=== PATIENT | female | born 1940 | race African-American/Black ===

== ENCOUNTER 2020-04-02 12:43 | Emergency (ER) | payer MEDICARE ==
[~2020-04-02] VITALS: Ht 175.3 cm; Wt 59.9 kg
--- OUTSIDE RECORDS SUMMARY | 2020-04-02 12:46 | XMS REPORT ---
Author Author [facility] t Organization [facility] Address 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 Allergies, Adverse Reactions, Alerts Allergy Name Allergy Type Status Severity Reaction(s) Onset Date Inacti ve Date Treating Clinician Comments Source Penicillins DA Active SD 2018-07-18 00:00:00 [facility] Medications This patient has no known medications. Procedures This patient has no known procedures. Results Test Description Test Time Test Comments Results Result Comments Source - CT CHEST W/O CONTRAST 2019-04-10 14:12:00 Pat ient Name: ELI GARCIA Unit No: [id number] EXAMS: CPT CODE: [id number] CT CHEST W/O CONTRAST [address]607 High-resolution CT of the chest CLINICAL INDICATION: Interstitial lung disease COMPARISON: None Location B2 Spiral CT is obtained from lung apices to bases without contrast and with axial, coronal and sagittal reconstructions as well as thin section axial series and prone and supine positioning as per high-resolution technique. One or more the following dose reduction techniques were used: Automated exposure control, adjustment of mA and/or kV according to patient size, and use of iterative reconstruction technique. DLP 677.78 mGy-cm. There is elevation of the right hemidiaphragm and elongated nodular opacity at the right lung base which measures 2.9 cm in width, 12 mm in AP diameter and 14 mm in craniocaudal dimension. This could represent an discoid atelectasis or mass. It extends cephalad to towards the right hilum. Lungs are otherwise clear, free of infiltrates, nodules or effusions. There is no evidence of septal thickening, emphysema, bronchiectasis or bullous disease. Heart is normal in size. Great vessels are normal in caliber. There is no convincing mediastinal or hilar adenopathy. Bony structures are unremarkable. Multiple calcified gallstones are present in the gallbladder. IMPRESSION: 1. Elongated nodule at the right lung base may represent discoid atelectasis. Short-term follow-up or consideration for PET CT may be appropriate. 2. Elevation of the right hemidiaphragm which may be due to splinting or diaphragmatic paralysis. 3. No evidence of interstitial lung disease 4. Cholelithiasis at 1412 Reported and signed by: Radha Hung M.D. [facility] NAME: ELI GARCIA [id number] PHYS: Merna Mejía [place] [address] : 1940 AGE: 78 SEX: F LOC: Z.PFL PHONE #: [phone] EXAM DATE: 04/10/2019 STATUS: REG CLI FAX #: [phone] RAD #: D/C DT PAGE 1 Signed Report (CONTINUED) Patient Name: ELI GARCIA Unit No: [id number] EXAMS: CPT CODE: [id number] CT CHEST W/O CONTRAST 00691 <Continued> CC: Merna Perla MD; Antoine Jimenes MD Technologist: Froilan Rendon RT(R); Polly CTDI: DLP: Trnscrpt: 04/10/2019 (4246) tCHIP [facility] NAME: ELI GARCIA [id number] PHYS: Merna Mejía [place] [address] : 1940 AGE: 78 SEX: F LOC: Z.PFL PHONE #: [phone] EXAM DATE: 04/10/2019 STATUS: REG CLI FAX #: [phone] RAD #: D/C DT PAGE 2 Signed Report Patient Name: ELI GARCIA Unit No: [id number] EXAMS: CPT CODE: [id number] CT CHEST W/O CONTRAST 42624 <Continued> Orig Print D/T: S: 04/10/2019 (1416) [facility] NAME: ELI GARCIA [id number] PHYS: Merna Mejía [place] [address] : 1939 AGE: 78 SEX: F LOC: Z.PFL PHONE #: [phone] EXAM DATE: 04/10/2019 STATUS: REG CLI FAX #: [phone] RAD #: D/C DT PAGE 3 Signed Report
[2020-04-02] MEDS ORDERED: ACETAMINOPHEN 325 MG TAB PO ONE (13:30)
[2020-04-02] MEDS ORDERED: LIDOCAINE 4% PATCH TP ONE (13:30)
[2020-04-02] MEDS ORDERED: TRAMADOL HCL 50 MG TAB PO ONE (13:30)
--- NOTE | 2020-04-02 14:42 | Diagnostic Imaging Report ---
EXAMINATION: RIBS UNILAT W/CXR INDICATION: Left rib pain COMPARISON: None FINDINGS: LINES/TUBES:None LUNGS:The lungs are well-inflated. No focal consolidation or pulmonary edema. PLEURA:No pleural effusion or pneumothorax. MEDIASTINUM:The cardiomediastinal silhouette appears normal in size and shape. BONES/SOFT TISSUES:Mildly displaced acute left lateral 11th rib fracture. ABDOMEN:No free air under the diaphragm. IMPRESSION: Mildly displaced left lateral 11th rib fracture. No pneumothorax. Signed by: Wendy Costa MD on 04/02/2020 2:38 PM
--- NOTE | 2020-04-02 15:56 | Emergency Department Note ---
History of Present Illnes History of Present Illness Chief Complaint: General Medicine Complaints History of Present Illness This is a 79 year old female had mechanical trip and fall going to the bathroom around 0245 this morning pt tripped and fell into the tub denies hitting her head pt a&o x 3 denies being on blood thinners c/o constant non radiating left ribs/flank pain and states it is sometimes hard to breathe no deformities noted denies dizziness denies weakness . 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 Any updates have been documented here. Past Medical History Recent Fever: No Clinical Suspicion of Infectio: No New/Unexplained Change in Ment: No Past Medical History: COPD Other Medical History: rheumatoid arthritis Past Surgical History: Knee Replacement Social History Smoking Cessation: Never Smoker Counseling Performed: No Alcohol Use: None Any Illegal Drug Use: No TB Exposure/Symptoms: No Physically hurt or threatened: No Other Last Tetanus: utd Any Pre-Existing Lines (PICC,: No Is patient up to date on immun: Yes Last Flu: utd Last Pneumovax: utd Review of Systems Review of Systems Constitutional: no symptoms EENTM: no symptoms Cardiovascular: no symptoms Respiratory: no symptoms Gastrointestinal: no symptoms Genitourinary: no symptoms Musculoskeletal: other (rib pain) Neurological: no symptoms Psychological: no symptoms Endocrine: no symptoms Hematological/Lymphatic: no symptoms Review of other systems All other systems reviewed and negative. Physical Exam Related Data Allergies: Coded Allergies: Penicillins (Verified Allergy, Unknown, 04/02/20) Triage Vital Signs Vital Signs Date Time Temp Pulse Resp B/P (MAP) Pulse Ox O2 Delivery O2 Flow Rate FiO2 04/02/20 12:45 98.9 99 20 131/72 97 Physical Exam CONSTITUTIONAL Constitutional: well-developed, well-nourished HENT HENT: normocephalic, atraumatic, oropharynx clear/moist, nose normal HENT L/R: left ext ear normal, right ext ear normal EYES Eyes: PERRL, conjunctivae normal NECK Neck: ROM normal PULMONARY Pulmonary: effort normal, breath sounds normal CARDIOVASCULAR Cardiovascular: regular rhythm, heart sounds normal, capillary refill normal, normal rate GASTROINTESTINAL Abdominal: soft, nontender, bowel sounds normal GENITOURINARY Genitourinary: exam deferred SKIN Skin: warm, dry MUSCULOSKELETAL Musculoskeletal: other (left lateral lower rib pain) NEUROLOGICAL Neurological: alert, oriented x 3, no gross motor or sensory deficits PSYCHOLOGICAL Psychological: mood/affect normal, judgement normal Results Imaging Imaging results reviewed: Yes Impressions EXAMINATION: RIBS UNILAT W/CXR INDICATION: Left rib pain COMPARISON: None FINDINGS: LINES/TUBES:None LUNGS:The lungs are well-inflated. No focal consolidation or pulmonary edema. PLEURA:No pleural effusion or pneumothorax. MEDIASTINUM:The cardiomediastinal silhouette appears normal in size and shape. BONES/SOFT TISSUES:Mildly displaced acute left lateral 11th rib fracture. ABDOMEN:No free air under the diaphragm. IMPRESSION: Mildly displaced left lateral 11th rib fracture. No pneumothorax. Signed by: Wendy Costa MD on 04/02/2020 2:38 PM Diagnostics Tests Diagnostic test(s) reviewed: Yes Critical Care Time Subsequent provider I assumed direction of critical care for this patient from another provider of my specialty. Assessment & Plan Assessment & Plan Final Impression: (1) Rib fracture Assessment & Plan dc home, f/u pcp tomorrow, Lidoderm patches, Tramadol, Tylenol otc Last Vital Signs Date Time Temp Pulse Resp B/P (MAP) Pulse Ox O2 Delivery O2 Flow Rate FiO2 04/02/20 12:45 98.9 99 20 131/72 97 Medications in the ED Lidocaine 1 ea NOW ONCE TP ; Start 04/02/20 at 13:30; Stop 04/02/20 at 14:08; Status DC Tramadol HCl 50 mg ONCE ONCE PO ; Start 04/02/20 at 13:30; Stop 04/02/20 at 14:08; Status DC Acetaminophen 650 mg ONCE ONCE PO ; Start 04/02/20 at 13:30; Stop 04/02/20 at 14:08; Status DC LELE BOOTH MD April 02, 2020 15:56
== END 2020-04-02 16:37 | disposition home or self-care (01) ==
LOC: ER 12:43
DX: S22.32XA Fracture of one rib, left side, initial encounter for closed fracture (principal); W01.0XXA Fall on same level from slipping, tripping and stumbling without subsequent striking against object, initial encounter; Y93.01 Activity, walking, marching and hiking; Y92.002 Bathroom of unspecified non-institutional (private) residence as the place of occurrence of the external cause; J44.9 Chronic obstructive pulmonary disease, unspecified; M06.9 Rheumatoid arthritis, unspecified
CPT/HCPCS: 71101; 99283

== ENCOUNTER 2022-05-05 21:30 | Inpatient (IN) | payer MEDICARE ==
[~2022-05-05] VITALS: Ht 175.3 cm; Wt 81.2 kg
[2022-05-05] MEDS ORDERED: ACETAMINOPHEN 1000 MG/100 ML IV STA (21:55)
[2022-05-05] MEDS ORDERED: DEXAMETHASONE SOD PHOS 10 MG/1 ML VIAL IV ONE (21:56)
[2022-05-05 22:03] LABS: BASOPHILS % 0.1 % (0.0-1.0); HEMATOCRIT 37.5 % (34.2-44.1); HEMOGLOBIN 12.2 g/dL (12.0-16.0); LYMPHOCYTES # (AUTO) 0.4 (1.0-3.2); LYMPHOCYTES % 3.9 % (18.0-39.1); MEAN CORPUSCULAR HEMOGLOBIN 32.4 pg (28-32); MEAN CORPUSCULAR HGB CONC 32.5 g/dL (31-35); MEAN CORPUSCULAR VOLUME 99.7 fL (81-99); MONOCYTES # (AUTO) 0.1 (0.2-0.8); NEUTROPHILS # (AUTO) 9.5 (2.1-6.9); NEUTROPHILS % 94.7 % (38.7-80.0); PLATELET COUNT 162 x10e3/uL (140-360); RED BLOOD COUNT 3.76 x10e6/uL (3.6-5.1); RED CELL DISTRIBUTION WIDTH 15.3 % (11.7-14.4)
[2022-05-05 22:18] LABS: ALANINE AMINOTRANSFERASE 196 IU/L (0-55); ALBUMIN 3.4 g/dL (3.5-5.0); ALBUMIN/GLOBULIN RATIO 0.9 (0.8-2.0); ALKALINE PHOSPHATASE 146 IU/L (40-150); ANION GAP 17.7 mmol/L (8-16); BLOOD UREA NITROGEN 16 mg/dL (7-26); BUN/CREATININE RATIO 20 (6-25); CALCIUM 8.9 mg/dL (8.4-10.2); CARBON DIOXIDE 20 mmol/L (22-29); CHLORIDE 106 mmol/L (98-107); CREATINE KINASE 84 IU/L (29-168); CREATININE, SERUM 0.82 mg/dL (0.57-1.11); GLUCOSE 173 mg/dL (74-118); POTASSIUM 3.7 mmol/L (3.5-5.1); SODIUM 140 mmol/L (136-145)
[2022-05-05 22:23] LABS: B-TYPE NATRIURETIC PEPTIDE2 19.9 pg/mL (0-100)
[2022-05-05] MEDS ORDERED: SODIUM CHLORIDE 0.9% 1000ML 1,000 ML IV ONE (22:30)
[2022-05-05] MEDS ORDERED: IOPAMIDOL 370 MG/ML 100 ML INFUS..BTL INJ ONE (23:42)
[2022-05-06] MEDS ORDERED: SODIUM CHLORIDE 0.9% 1000ML 1,000 ML IV SCH (00:45)
[2022-05-06] MEDS ORDERED: ONDANSETRON HCL INJ 2MG/ML 2ML 2 MG/ML VIAL IV PRN (00:45)
[2022-05-06] MEDS ORDERED: ALBUTEROL/IPRATROPIUM 3 ML NEB NEB SCH (03:00)
[2022-05-06] MEDS ORDERED: ACETAMINOPHEN 1000 MG/100 ML IV PRN (04:00)
[2022-05-06 07:54] LABS: CREATINE KINASE MB 4.6 ng/mL (0-5.0)
[2022-05-06 08:15] VITALS: BP 167/76
[2022-05-06] MEDS ORDERED: PREDNISONE5 MG PO (11:20)
[2022-05-06] MEDS ORDERED: TRELEGY ELLIPT1 EACH INH (11:20)
[2022-05-06] MEDS ORDERED: PAXLOVID 150-11 EACH PO (11:20)
[2022-05-06] MEDS ORDERED: FOLIC ACID0.4 MG PO (11:20)
[2022-05-06 11:48] VITALS: BP 154/81
[2022-05-06 15:15] LABS: ALBUMIN 3.2 g/dL (3.5-5.0); ALBUMIN/GLOBULIN RATIO 0.8 (0.8-2.0); ANION GAP 18.4 mmol/L (8-16); CALCIUM 8.6 mg/dL (8.4-10.2); CREATININE, SERUM 0.62 mg/dL (0.57-1.11); POTASSIUM 4.4 mmol/L (3.5-5.1)
[2022-05-06 15:30] VITALS: BP 155/89
[2022-05-06] MEDS: DEXAMETHASONE SOD PHOS 10 MG/1 ML VIAL IV SCH (17:30)
[2022-05-06] MEDS ORDERED: REMDESIVIR 100MG 200 MG in SODIUM CHLORIDE 0.9% 100 ML IV ONE (18:30)
[2022-05-06] MEDS ORDERED: HEPARIN SOD (PORCINE) 5,000 UNIT/ML VIAL SC ONE ×2 (19:35→22:45)
[2022-05-06 20:00] VITALS: BP 155/89
[2022-05-06] MEDS: ALBUTEROL SULFATE HFA 8GM INHALATION AEROSOL INH SCH (20:30)
[2022-05-06] MEDS: DEXTROSE 5%/LACTATED RINGERS 1,000 ML IV SCH (22:41)
[2022-05-07] MEDS: ALBUTEROL SULFATE HFA 8GM INHALATION AEROSOL INH SCH ×4 (00:05→14:48)
[2022-05-07 04:34] VITALS: BP 160/74
[2022-05-07 07:19] LABS: ALBUMIN/GLOBULIN RATIO 0.8 (0.8-2.0); ANION GAP 16.9 mmol/L (8-16); CALCIUM 8.6 mg/dL (8.4-10.2); CREATININE, SERUM 0.62 mg/dL (0.57-1.11); POTASSIUM 3.9 mmol/L (3.5-5.1)
[2022-05-07 08:51] VITALS: BP 168/66
[2022-05-07 10:00] LABS: BASOPHILS % 0.1 % (0.0-1.0); HEMATOCRIT 35.4 % (34.2-44.1); HEMOGLOBIN 11.5 g/dL (12.0-16.0); LYMPHOCYTES # (AUTO) 0.7 (1.0-3.2); MEAN CORPUSCULAR HEMOGLOBIN 32.1 pg (28-32); MEAN CORPUSCULAR HGB CONC 32.5 g/dL (31-35); MEAN CORPUSCULAR VOLUME 98.9 fL (81-99); MONOCYTES # (AUTO) 0.9 (0.2-0.8); NEUTROPHILS # (AUTO) 19.9 (2.1-6.9); NEUTROPHILS % 91.9 % (38.7-80.0); PLATELET COUNT 144 x10e3/uL (140-360); RED BLOOD COUNT 3.58 x10e6/uL (3.6-5.1); RED CELL DISTRIBUTION WIDTH 15.7 % (11.7-14.4)
[2022-05-07] MEDS: DEXTROSE 5%/LACTATED RINGERS 1,000 ML IV SCH (10:03)
[2022-05-07 11:00] LABS: INR 1.33; PROTHROMBIN TIME 17.6 seconds (11.9-14.5)
[2022-05-07 11:01] LABS: PARTIAL THROMBOPLASTIN TIME 28.8 seconds (23.8-35.5)
[2022-05-07 11:49] VITALS: BP 155/70
[2022-05-07 12:55] LABS: BAND NEUTROPHILS % (MANUAL) 3 %; LYMPHOCYTES % (MANUAL) 2 % (19-48); MONOCYTES % (MANUAL) 6 % (3.4-9.0); NEUTROPHILS % (MANUAL) 89 % (40-74); PLATELET ESTIMATE SLIGHTLY DECREASED
[2022-05-07 12:56] LABS: PLATELET MORPHOLOGY COMMENT NORMAL; RBC MORPHOLOGY COMMENT NORMAL
[2022-05-07] MEDS ORDERED: REMDESIVIR 100MG 100 MG in SODIUM CHLORIDE 0.9% 100 ML IV SCH (14:00)
[2022-05-07 14:07] LABS: BASOPHILS % 0.1 % (0.0-1.0); HEMATOCRIT 32.3 % (34.2-44.1); HEMOGLOBIN 10.7 g/dL (12.0-16.0); LYMPHOCYTES # (AUTO) 0.6 (1.0-3.2); LYMPHOCYTES % 3.1 % (18.0-39.1); MEAN CORPUSCULAR HEMOGLOBIN 32.1 pg (28-32); MEAN CORPUSCULAR HGB CONC 33.1 g/dL (31-35); MONOCYTES % 4.8 % (4.4-11.3); NEUTROPHILS # (AUTO) 18.6 (2.1-6.9); NEUTROPHILS % 90.7 % (38.7-80.0); PLATELET COUNT 131 x10e3/uL (140-360); RED BLOOD COUNT 3.33 x10e6/uL (3.6-5.1); RED CELL DISTRIBUTION WIDTH 15.6 % (11.7-14.4)
[2022-05-07 14:31] LABS: ALBUMIN 2.7 g/dL (3.5-5.0); ALBUMIN/GLOBULIN RATIO 0.7 (0.8-2.0); ANION GAP 12.8 mmol/L (8-16); CALCIUM 8.6 mg/dL (8.4-10.2); CREATININE, SERUM 0.66 mg/dL (0.57-1.11); POTASSIUM 3.8 mmol/L (3.5-5.1)
[2022-05-07 14:57] LABS: AMYLASE 825 U/L (25-125); LIPASE 1014 U/L (8-78)
[2022-05-07 15:44] VITALS: BP 148/77
[2022-05-07] MEDS: DEXAMETHASONE SOD PHOS 10 MG/1 ML VIAL IV SCH (16:50)
== END 2022-05-07 18:21 | disposition short-term general hospital (02) | DRG 871 ==
LOC: ER 21:45 → ERHOLD 05-06 00:40 → MED/SURG2 05-06 07:49
PROVIDERS: ADMIT Internal Medicine; ATTEND Internal Medicine
PROC: XW033E5 Introduction of Remdesivir Anti-infective into Peripheral Vein, Percutaneous Approach, New Technology Group 5 (ICD-10-PCS; 2022-05-06)
PROC: 3E0333Z Introduction of Anti-inflammatory into Peripheral Vein, Percutaneous Approach (ICD-10-PCS; 2022-05-06)
PROC: 3E03329 Introduction of Other Anti-infective into Peripheral Vein, Percutaneous Approach (ICD-10-PCS; 2022-05-06)
PROC: 02HV33Z Insertion of Infusion Device into Superior Vena Cava, Percutaneous Approach (ICD-10-PCS; principal; 2022-05-07)
DX: A41.51 Sepsis due to Escherichia coli [E. coli] (principal); G93.41 Metabolic encephalopathy; K85.10 Biliary acute pancreatitis without necrosis or infection; U07.1 COVID-19; K80.60 Calculus of gallbladder and bile duct with cholecystitis, unspecified, without obstruction; K82.1 Hydrops of gallbladder; M62.82 Rhabdomyolysis; F03.90 Unspecified dementia, unspecified severity, without behavioral disturbance, psychotic disturbance, mood disturbance, and anxiety; J44.9 Chronic obstructive pulmonary disease, unspecified; M06.9 Rheumatoid arthritis, unspecified; K57.30 Diverticulosis of large intestine without perforation or abscess without bleeding; R09.02 Hypoxemia; Z88.0 Allergy status to penicillin
CPT/HCPCS: 36415; 36569; 70450; 71045; 74177; 74181; 80053; 82140; 82150; 82550; 82553; 83605; 83690; 83880; 84484; 85025; 85610; 85730; 87040; 87071; 87186; 87205; 93005; 94640; 94664; 94760; 94799; 96361; 99285; J0248; J0456; J0696; J1100; J1644; J2543; J7030; J7050; Q9967